=== PATIENT | female | born 1960 | race Caucasian/White ===

== ENCOUNTER → 2017-02-15 | Outpatient (CLI) | payer MEDICAID ==
[~2017-02-15] MED LIST: ASPI-983 PO; ASPI-999 PO; ATOR10TA66 PO; CLOP75TA69 PO; FAMO20TA3 PO; HYDR25TA4 PO; MELO15TA39 PO; METO-333 PO; TRAZ100T92 PO
[2017-02-15 15:27] LABS: BASOPHILS % (AUTO) 0 % (0-10); EOSINOPHILS # (AUTO) 0.1 10^3/uL (0.0-0.3); EOSINOPHILS % (AUTO) 1 % (0-10); LYMPHOCYTES # (AUTO) 1.8 X 10^3 (1.0-4.0); LYMPHOCYTES % (AUTO) 27 % (12-44); MEAN CORPUSCULAR HEMOGLOBIN 31 PG (25-34); MEAN CORPUSCULAR HGB CONC 34 G/DL (32-36); MEAN CORPUSCULAR VOLUME 92 FL (80-99); MEAN PLATELET VOLUME 9.2 FL (7.4-10.4); MONOCYTES # (AUTO) 0.4 X 10^3 (0.0-1.0); MONOCYTES % (AUTO) 6 % (0-12); NEUTROPHILS # (AUTO) 4.4 X 10^3 (1.8-7.8); NEUTROPHILS % (AUTO) 66 % (42-75); PLATELET COUNT 233 10^3/uL (130-400); RED BLOOD COUNT 4.83 10^6/uL (4.35-5.85); RED CELL DISTRIBUTION WIDTH 13.3 % (10.0-14.5); WHITE BLOOD COUNT 6.6 10^3/uL (4.3-11.0)
--- NOTE | 2017-02-15 15:28 | Diagnostic Imaging Report ---
PROCEDURE: US left lower extremity venous. TECHNIQUE: Multiple real-time grayscale images were obtained over the left lower extremity in various projections. Additional duplex Doppler and color Doppler images were also obtained. INDICATION: Left leg swelling. FINDINGS: The veins in the left leg are compressible and have normal spontaneous and augmented flow. IMPRESSION: Negative venous Doppler of left leg. Dictated by: Dictated on workstation # [id number]
--- NOTE | 2017-02-15 15:29 | Diagnostic Imaging Report ---
INDICATION: Left lateral calf swelling. TECHNIQUE: Multiple real time rice scale sonographic images were obtained of the soft tissues of left leg. CORRELATION STUDY: None. FINDINGS: Ultrasound imaging of soft tissue of the left leg demonstrates no definitive mass lesion. No cystic fluid collection. IMPRESSION: Unremarkable focused soft tissue ultrasound of the left calf. Dictated by: Dictated on workstation # [id number]
--- NOTE | 2017-02-15 15:40 | Diagnostic Imaging Report ---
INDICATION: Left leg pain and swelling. FINDINGS: AP and lateral views of the left tibia and fibula show no fracture, dislocation, or other acute abnormalities. IMPRESSION: Negative left tibia and fibula. Dictated by: Dictated on workstation # [id number]
[2017-02-15 15:41] LABS: INR 0.9 (0.8-1.4); PROTHROMBIN TIME PATIENT 12.2 SEC (12.2-14.7)
[2017-02-15 15:47] LABS: ALANINE AMINOTRANSFERASE 26 U/L (0-55); ALBUMIN 4.1 G/DL (3.2-4.5); ANION GAP 11 MMOL/L (5-14); ASPARTATE AMINO TRANSFERASE 24 U/L (5-34); BILIRUBIN,TOTAL 0.5 MG/DL (0.1-1.0); BLOOD UREA NITROGEN 8 MG/DL (7-18); BUN/CREATININE RATIO 11; CALCIUM 8.9 MG/DL (8.5-10.1); CARBON DIOXIDE 22 MMOL/L (21-32); CHLORIDE 108 MMOL/L (98-107); CREATININE SERUM 0.74 MG/DL (0.60-1.30); GFR ESTIMATED > 60; GLUCOSE 166 MG/DL (70-105); POTASSIUM 3.8 MMOL/L (3.6-5.0); SODIUM 141 MMOL/L (135-145); TOTAL PROTEIN 6.6 G/DL (6.4-8.2)
[2017-02-15 15:49] LABS: ERYTHROCYTE SEDIMENTATION RATE 4 MM/HR (0-30)
== END ==
LOC: RAD 14:51
PROVIDERS: ATTEND Internal Medicine Cardiovascular Disease
DX: I70.213 Atherosclerosis of native arteries of extremities with intermittent claudication, bilateral legs (principal); M79.89 Other specified soft tissue disorders; I10 Essential (primary) hypertension; I65.23 Occlusion and stenosis of bilateral carotid arteries; Z72.0 Tobacco use
CPT/HCPCS: 36415; 73590; 76881; 80053; 85025; 85610; 85652; 85730

== ENCOUNTER → 2017-03-27 | Outpatient (CLI) | payer MEDICAID | LOC: RAD 12:29 | PROVIDERS: ATTEND Internal Medicine Cardiovascular Disease | DX: I70.213 Atherosclerosis of native arteries of extremities with intermittent claudication, bilateral legs (principal); I10 Essential (primary) hypertension; I65.23 Occlusion and stenosis of bilateral carotid arteries; M79.89 Other specified soft tissue disorders; Z72.0 Tobacco use | CPT/HCPCS: 93923 ==

== ENCOUNTER 2019-04-08 08:39 | Day surgery (SDC) | payer MEDICAID, MEDICARE ==
[~2019-04-08] VITALS: Ht 165.1 cm; Wt 98.4 kg
[2019-04-08] VITALS (9 sets, daily range): BP systolic 120–159; BP diastolic 63–109
[~2019-04-08 08:39] MED LIST changes: +HEParin (CATH LAB) 2,000 ML IV ONE; +LIDOCAINE 1% INJ 20 ML 20 ML VIAL ONE; +NS IV 1000 ML 1,000 ML ONE; +TRAZ-190 PO; -TRAZ100T92 PO
--- OUTSIDE RECORDS SUMMARY | 2019-04-08 08:42 | XMS REPORT ---
Author Author [facility] Organization [facility] Address [address], [place] [address] Phone [phone] Summary purpose TRANSITION OF CARE AUTO GENERATION Chief Complaint and Reason for Visit No authorized Reason for Visit (Admitting Diagnosis) is available for this visit . Problem list No authorized problems tracked for continuity of care are available for this vis it. Encounters No authorized problems tracked for encounter diagnoses are available for this vi sit. Medications No medications recorded for this patient visit Allergies, adverse reactions, alerts Allergen Category Ingredient Status Reaction Severity Onset unknown cholesterol medicine Drug Allergy unknown cholesterol medicine Confirmed or Verified Immunizations No immunizations recorded for this patient visit Relevant diagnostic tests and/or laboratory data RESULTS Radiology Results [id number] DUP [place] EXT BILAT PACs Image DATE OF EXAM: Apr 17 2016 [id number] VENOUS DUPLEX-BILATERAL : RADIOLOGY REPORT DATE OF SERVICE: 04/17/16 HISTORY: Bilateral calf and thigh pain, peripheral vascular disease BILATERAL LOWER EXTREMITY VENOUS DOPPLER 1400 HOURS Arterial evaluation was normal. The lower extremity veins were evaluated with high resolution real time imaging, pulsed and color flow Doppler. There is normal spontaneous phasic flow in the common femoral, femoral, popliteal, posterior tibial, and greater saphenous veins. All deep vein segments are fully compressible. No thrombi are evident. There is normal augmentation of flow with distal compression. IMPRESSION: Normal bilateral venous Doppler. MD JANINE Drummond/me04/17/2016 14:10:00 / 04/17/2016 14:24:00 cc:Dr. Enrique Mcneil This document has been electronically Signed by: On: DATE OF EXAM: Apr 17 2016 [id number] VENOUS DUPLEX-BILATERAL : RADIOLOGY REPORT DATE OF SERVICE: 04/17/16 HISTORY: Bilateral calf and thigh pain, peripheral vascular disease BILATERAL LOWER EXTREMITY VENOUS DOPPLER 1400 HOURS Arterial evaluation was normal. The lower extremity veins were evaluated with high resolution real time imaging, pulsed and color flow Doppler. There is normal spontaneous phasic flow in the common femoral, femoral, popliteal, posterior tibial, and greater saphenous veins. All deep vein segments are fully compressible. No thrombi are evident. There is normal augmentation of flow with distal compression. IMPRESSION: Normal bilateral venous Doppler. Deepak Vang MD MWD/nh04/17/2016 14:10:00 / 04/17/2016 14:24:00 cc:Dr. Enrique Mcneil This document has been electronically Signed by: DEEPAK VANG MD On: Apr 17 20163:19P Result Amended on 2016-04-17 at 15:20:00. Previous status was [place]. History of procedures No procedures recorded for this patient visit. Functional status No functional or cognitive status observations are available for this visit. Vital signs No authorized vital signs are available for this visit. Social history No Social History or smoking status observations were recorded for this visit. ( Unknown if ever smoked.) Treatment Plan No treatment plan text is available for this visit. Hospital discharge instructions No discharge instruction text is available for this visit.
--- OUTSIDE RECORDS SUMMARY | 2019-04-08 08:42 | XMS REPORT ---
Author Author [facility] Organization [facility] Address [address], [place] [address] Phone [phone] Summary purpose TRANSITION OF CARE AUTO GENERATION [...] tests and/or laboratory data RESULTS Radiology Results [id number] TOE XRAYS - 3 VIEW PACs Image DATE OF EXAM: 2015 RAD 1571-TOE XRAYS-3 VIEW- RIGHT: RADIOLOGY REPORT DATE OF SERVICE: 04/26/16 HISTORY: Fourth toe pain, swelling, injury 04/22/16 RIGHT TOE X-RAY 3 VIEWS 1110 HOURS There is an oblique fracture of the mid through distal diaphysis of the proximal fourth phalanx. No displacement is seen. The remainder of the bony and articular structures visualized are intact. Soft tissue swelling is mild. IMPRESSION: Fracture proximal phalanx fourth toe. DO JENNIFFER Villagran/aleksey 04/26/2016 11:43:00 / 04/26/2016 12:56:54 cc:Dr. Enrique Mcneil This document has been electronically Signed by: On: DATE OF EXAM: 2015 RAD 1571-TOE XRAYS-3 VIEW- RIGHT: RADIOLOGY REPORT DATE OF SERVICE: 04/26/16 HISTORY: Fourth toe pain, swelling, injury 04/22/16 RIGHT TOE X-RAY 3 VIEWS 1110 HOURS There is an oblique fracture of the mid through distal diaphysis of the proximal fourth phalanx. No displacement is seen. The remainder of the bony and articular structures visualized are intact. Soft tissue swelling is mild. IMPRESSION: Fracture proximal phalanx fourth toe. Miguel Garcia DO WP/nh 04/26/2016 11:43:00 / 04/26/2016 12:56:54 cc:Dr. Enrique Mcneil This document has been electronically Signed by: MIGUEL GARCIA DO On: 20152:34P Result Amended on 2016-04-26 at 14:34:46. Previous status was [place]. History of procedures No procedures recorded for [...]
--- OUTSIDE RECORDS SUMMARY | 2019-04-08 08:42 | XMS REPORT ---
Author Author [facility] Organization [facility] Address [address], [place] [address] Phone [phone] Summary purpose TRANSITION OF CARE AUTO GENERATION [...] tests and/or laboratory data RESULTS Radiology Results [id number]:00 DUP ART DOPPLER EXT PACs Image DATE OF EXAM: 2015 [id number] ART DUPLEX LOW EXT BILAT : RADIOLOGY REPORT DATE OF SERVICE: 04/21/16 HISTORY: Peripheral vascular disease, atherosclerosis, abnormal ankle brachial indices, lower extremity claudication. BILATERAL LOWER EXTREMITY ARTERIAL DOPPLER 0900 HOURS The right common femoral artery shows minimal plaque. It has a monophasic waveform with mild spectral broadening. The right superficial femoral artery also shows monophasic appearance throughout its length without additional focal stenoses. The right popliteal artery is monophasic with reduced flow speed. The right posterior tibial artery and anterior tibial artery are also monophasic. The dorsalis pedis artery is patent with monophasic flow. The left common femoral artery shows mild plaquing. It has triphasic flow and minimal spectral broadening with normal flow speed. There is mild plaquing in the mid left superficial femoral artery with triphasic waveform maintained. The left popliteal artery is triphasic with some spectral broadening. The left posterior tibial artery is triphasic with mild spectral broadening. The left anterior tibial artery is biphasic with spectral broadening and the left dorsalis pedis artery is also biphasic. IMPRESSION: 1. Evidence of proximal arterial obstruction in the right lower extremity probably at the level of the right iliac artery. This artery itself is not visualized however abnormal flow is present throughout the right lower extremity. At least two-vessel runoff distally. 2. Scattered areas of mild plaquing throughout the left lower extremity without significant left lower extremity arterial obstruction. MD JANINE Drummond/aleksey04/21/2016 11:35:00 / 04/21/2016 11:46:42 cc:Dr. Enrique Mcneil This document has been electronically Signed by: On: DATE OF EXAM: 2015 [id number] ART DUPLEX LOW EXT BILAT : RADIOLOGY REPORT DATE OF SERVICE: 04/21/16 HISTORY: Peripheral vascular disease, atherosclerosis, abnormal ankle brachial indices, lower extremity claudication. BILATERAL LOWER EXTREMITY ARTERIAL DOPPLER 0900 HOURS The right common femoral artery shows minimal plaque. It has a monophasic waveform with mild spectral broadening. The right superficial femoral artery also shows monophasic appearance throughout its length without additional focal stenoses. The right popliteal artery is monophasic with reduced flow speed. The right posterior tibial artery and anterior tibial artery are also monophasic. The dorsalis pedis artery is patent with monophasic flow. The left common femoral artery shows mild plaquing. It has triphasic flow and minimal spectral broadening with normal flow speed. There is mild plaquing in the mid left superficial femoral artery with triphasic waveform maintained. The left popliteal artery is triphasic with some spectral broadening. The left posterior tibial artery is triphasic with mild spectral broadening. The left anterior tibial artery is biphasic with spectral broadening and the left dorsalis pedis artery is also biphasic. IMPRESSION: 1. Evidence of proximal arterial obstruction in the right lower extremity probably at the level of the right iliac artery. This artery itself is not visualized however abnormal flow is present throughout the right lower extremity. At least two-vessel runoff distally. 2. Scattered areas of mild plaquing throughout the left lower extremity without significant left lower extremity arterial obstruction. MD JANINE Drummond/aleksey04/21/2016 11:35:00 / 04/21/2016 11:46:42 cc:Dr. Enrique Mcneil This document has been electronically Signed by: PURA MUNSON MD On: 20152:40P Result Amended on 2016-04-21 at 14:40:24. Previous status was [place]. History of procedures No procedures recorded for [...]
--- OUTSIDE RECORDS SUMMARY | 2019-04-08 08:42 | XMS REPORT ---
Author [facility] Medical Staff Organization [facility] Address [address], [place] [address] Phone [phone] Summary purpose TRANSITION OF CARE AUTO GENERATION [...] visit Relevant diagnostic tests and/or laboratory data No authorized results are available for this patient visit History of procedures No procedures recorded for [...]
--- OUTSIDE RECORDS SUMMARY | 2019-04-08 08:42 | XMS REPORT ---
Author Author [facility] [employer] [facility] Medical Staff Organization [facility] Address [address], [place] [address] Phone [phone] Summary purpose TRANSITION OF CARE AUTO GENERATION [...]
--- OUTSIDE RECORDS SUMMARY | 2019-04-08 08:42 | XMS REPORT ---
Author Author [facility] Medical Staff Organization [facility] Address [address], [place] [address] Phone [phone] Summary purpose TRANSITION OF CARE AUTO GENERATION [...] tests and/or laboratory data RESULTS Radiology Results [id number]:34:00 TOE XRAYS - 3 VIEW PACs Image [...] IMPRESSION: Fracture proximal phalanx fourth toe. DO JNENIFFER Villagran/aleksey 04/26/2016 11:43:00 / 04/26/2016 12:56:54 cc:Dr. [...] on 2016-04-26 at 14:34:46. Previous status was [place]. History of procedures No procedures recorded for [...]
--- OUTSIDE RECORDS SUMMARY | 2019-04-08 08:43 | XMS REPORT | Continuity of Care Document ---
Demographics x Preferred Language Unknown Marital Status Unknown Mu-Ism Affiliation Unknown Race Unknown Ethnic Group Unknown Author Organization Unknown Address Unknown Allergies Active Description Code Type Severity Reaction Onset Reported/Identified Relationship to Patient Clinical Status Yes unknown cholesterol medicine UNKNOWN CHOLESTEROL MEDICINE Drug Allergy N/A N/A Confirmed or Verified Yes Numorphan Drug Allergy N/A N/A 08/21/2014 Medications There is no data. Problems Date Dx Coded Attending Type Code Diagnosis Diagnosed By 08/13/2012 305.1 NICOTINE DEPENDENCE 08/13/2012 401.1 ESSENTIAL HYPERTENSION BENIGN 08/13/2012 780.52 insomnia 08/13/2012 788.41 urinary frequency increased 08/13/2012 VALADEZ DO, ROBINSON K 305.1 NICOTINE DEPENDENCE 08/13/2012 VALADEZ DO, ROBINSON K 401.1 ESSENTIAL HYPERTENSION BENIGN 08/13/2012 VALADEZ DO, ROBINSON K 780.52 insomnia 08/13/2012 VALADEZ DO, ROBINSON K 788.41 urinary frequency increased 08/13/2012 MUOGHALU DDS, LORE N 305.1 NICOTINE DEPENDENCE 08/13/2012 MUOGHALU DDS, LORE N 401.1 ESSENTIAL HYPERTENSION BENIGN 08/13/2012 MUOGHALU DDS, LORE N 780.52 insomnia 08/13/2012 MUOGHALU DDS, LORE N 788.41 urinary frequency increased 08/13/2012 BIANCA ECHEVERRIA MD 305.1 NICOTINE DEPENDENCE 08/13/2012 BIANCA ECHEVERRIA MD 401.1 ESSENTIAL HYPERTENSION BENIGN 08/13/2012 BIANCA ECHEVERRIA MD 780.52 insomnia 08/13/2012 BIANCA ECHEVERRIA MD 788.41 urinary frequency increased 08/13/2012 BIANCA ECHEVERRIA MD 305.1 NICOTINE DEPENDENCE 08/13/2012 BIANCA ECHEVERRIA MD 401.1 ESSENTIAL HYPERTENSION BENIGN 08/13/2012 BIANCA ECHEVERRIA MD 780.52 insomnia 08/13/2012 BIANCA ECHEVERRIA MD 788.41 urinary frequency increased 08/13/2012 ISABEL ACOSTA MD 305.1 NICOTINE DEPENDENCE 08/13/2012 DAVE MD, ISABEL M 401.1 ESSENTIAL HYPERTENSION BENIGN 08/13/2012 ISABEL ACOSTA MD 780.52 insomnia 08/13/2012 ISABEL ACOSTA MD 788.41 urinary frequency increased 08/13/2012 EMILY ESTEVEZ LILLY S 305.1 NICOTINE DEPENDENCE 08/13/2012 EMILY ESTEVEZ LILLY S 401.1 ESSENTIAL HYPERTENSION BENIGN 08/13/2012 EMILY ESTEVEZ LILLY S 780.52 insomnia 08/13/2012 EMILY ESTEVEZ, LILLY S 788.41 urinary frequency increased 08/13/2012 FRANCE ICE CREAM MAN, KINZA R 305.1 NICOTINE DEPENDENCE 08/13/2012 FRANCE ICE CREAM MAN, KINZA R 401.1 ESSENTIAL HYPERTENSION BENIGN 08/13/2012 FRANCE ICE CREAM MAN, KINZA R 780.52 insomnia 08/13/2012 FRANCE ICE CREAM MAN, KINZA R 788.41 urinary frequency increased 08/13/2012 FRANCE ICE CREAM MAN, KINZA R 305.1 NICOTINE DEPENDENCE 08/13/2012 FRANCE ESTEVEZ, KINZA R 401.1 ESSENTIAL HYPERTENSION BENIGN 08/13/2012 FRANCE ESTEVEZ, KINZA R 780.52 insomnia 08/13/2012 FRANCE ICE CREAM MAN, KINZA R 788.41 urinary frequency increased 08/13/2012 FRANCE ICE CREAM MAN, KINZA R 305.1 NICOTINE DEPENDENCE 08/13/2012 FRANCE ESTEVEZ, KINZA R 401.1 ESSENTIAL HYPERTENSION BENIGN 08/13/2012 FRANCE ICE CREAM MAN, KINZA R 780.52 insomnia 08/13/2012 FRANCE ICE CREAM MAN, KINZA R 788.41 urinary frequency increased 08/13/2012 VIRGINIA LEW MD 305.1 NICOTINE DEPENDENCE 08/13/2012 VIRGINIA LEW MD 401.1 ESSENTIAL HYPERTENSION BENIGN 08/13/2012 VIRGINIA LEW MD 780.52 insomnia 08/13/2012 VIRGINIA LEW MD 788.41 urinary frequency increased 08/13/2012 VIRGINIA LEW MD 305.1 NICOTINE DEPENDENCE 08/13/2012 VIRGINIA LEW MD 401.1 ESSENTIAL HYPERTENSION BENIGN 08/13/2012 VIRGINIA LEW MD 780.52 insomnia 08/13/2012 VIRGINIA LEW MD 788.41 urinary frequency increased 11/14/2012 VALADEZ DOSERGEA K 216.9 PIGMENTED NEVUS 11/14/2012 VALADEZ DO, ROBINSON K 300.00 anxiety 11/14/2012 VALADEZ DO, ROBINSON K 719.43 joint pain, localized in the right wrist 11/14/2012 VALADEZ DO, ROBINSON K 727.49 BURSAL CYST WRIST 11/14/2012 MUOGHALU DDS, LORE N 216.9 PIGMENTED NEVUS 11/14/2012 MUOGHALU DDS, LORE N 300.00 anxiety 11/14/2012 MUOGHALU DDS, LROE N 719.43 joint pain, localized in the right wrist 11/14/2012 MUOGHALU DDS, LORE N 727.49 BURSAL CYST WRIST 11/14/2012 JACKI VICK, BIANCA Horvath 216.9 PIGMENTED NEVUS 11/14/2012 BIANCA ECHEVERRIA MD 300.00 anxiety 11/14/2012 BIANCA ECHEVERRIA MD 719.43 joint pain, localized in the right wrist 11/14/2012 BIANCA ECHEVERRIA MD 727.49 BURSAL CYST WRIST 11/14/2012 BIANCA ECHEVERRIA MD 216.9 PIGMENTED NEVUS 11/14/2012 BIANCA ECHEVERRIA MD 300.00 anxiety 11/14/2012 BIANCA ECHEVERRIA MD 719.43 joint pain, localized in the right wrist 11/14/2012 BIANCA ECHEVERRIA MD 727.49 BURSAL CYST WRIST 11/14/2012 ISABEL ACOSTA MD 216.9 PIGMENTED NEVUS 11/14/2012 ISABEL ACOSTA MD 300.00 anxiety 11/14/2012 ISABEL ACOSTA MD 719.43 joint pain, localized in the right wrist 11/14/2012 ISABEL ACOSTA MD 727.49 BURSAL CYST WRIST 11/14/2012 MAIN DIAZ APRNNDA S 216.9 PIGMENTED NEVUS 11/14/2012 EMILY ESTEVEZ, LILLY S 300.00 anxiety 11/14/2012 MAIN DIAZ APRNNDA S 719.43 joint pain, localized in the right wrist 11/14/2012 MAIN DIAZ APRNNDA S 727.49 BURSAL CYST WRIST 11/14/2012 FRANCE ESTEVEZ KINZA R 216.9 PIGMENTED NEVUS 11/14/2012 FRANCE ESTEVEZ KINZA R 300.00 anxiety 11/14/2012 FRANCE ICE CREAM MAN, KINZA R 719.43 joint pain, localized in the right wrist 11/14/2012 FRANCE ICE CREAM MAN, KINZA R 727.49 BURSAL CYST WRIST 11/14/2012 FRANCE ICE CREAM MAN, KINZA R 216.9 PIGMENTED NEVUS 11/14/2012 FRANCE ICE CREAM MAN, KINZA R 300.00 anxiety 11/14/2012 FRANCE ICE CREAM MAN, KINZA R 719.43 joint pain, localized in the right wrist 11/14/2012 FRANCE ICE CREAM MAN, KINZA R 727.49 BURSAL CYST WRIST 11/14/2012 FRANCE ICE CREAM MAN, KINZA R 216.9 PIGMENTED NEVUS 11/14/2012 FRANCE ICE CREAM MAN, KINZA R 300.00 anxiety 11/14/2012 FRANCE ICE CREAM MAN, KINZA R 719.43 joint pain, localized in the right wrist 11/14/2012 FRANCE ICE CREAM MAN, KINZA R 727.49 BURSAL CYST WRIST 11/14/2012 VIRGINIA LEW MD 216.9 PIGMENTED NEVUS 11/14/2012 VIRGINIA LEW MD 300.00 anxiety 11/14/2012 VIRGINIA LEW MD 719.43 joint pain, localized in the right wrist 11/14/2012 VIRGINIA LEW MD 727.49 BURSAL CYST WRIST 11/14/2012 VIRGINIA LEW MD 216.9 PIGMENTED NEVUS 11/14/2012 VIRGINIA LEW MD 300.00 anxiety 11/14/2012 VIRGINIA LEW MD 719.43 joint pain, localized in the right wrist 11/14/2012 VIRGINIA LEW MD 727.49 BURSAL CYST WRIST 08/06/2013 BIANCA ECHEVERRIA MD 272.4 HYPERLIPIDEMIA 08/06/2013 BIANCA ECHEVERRIA MD 790.29 PREDIABETES 08/06/2013 BIANCA ECHEVERRIA MD 272.4 HYPERLIPIDEMIA 08/06/2013 BIANCA ECHEVERRIA MD 790.29 PREDIABETES 08/06/2013 ISABEL ACOSTA MD 272.4 HYPERLIPIDEMIA 08/06/2013 ISABEL ACOSTA MD 790.29 PREDIABETES 08/06/2013 LILLY DIAZ APRN S 272.4 HYPERLIPIDEMIA 08/06/2013 LILLY DIAZ APRN S 790.29 PREDIABETES 08/06/2013 FORD HOUGH APRNINA R 272.4 HYPERLIPIDEMIA 08/06/2013 FRANCE ESTEVEZ, KINZA R 790.29 PREDIABETES 08/06/2013 FRANCE ESTEVEZ, KINZA R 272.4 HYPERLIPIDEMIA 08/06/2013 FRANCE ESTEVEZ, KINZA R 790.29 PREDIABETES 08/06/2013 FRANCE ESTEVEZ, KINZA R 272.4 HYPERLIPIDEMIA 08/06/2013 FORD HOUGH APRNINA R 790.29 PREDIABETES 08/06/2013 VIRGINIA LEW MD 272.4 HYPERLIPIDEMIA 08/06/2013 VIRGINIA LEW MD 790.29 PREDIABETES 08/06/2013 VIRGINIA LEW MD 272.4 HYPERLIPIDEMIA 08/06/2013 VIRGINIA LEW MD 790.29 PREDIABETES 01/24/2014 LILLY DIAZ APRN 781.0 ABNORMAL INVOLUNTARY MOVEMENTS 01/24/2014 FORD HOUGH APRNINA R 781.0 ABNORMAL INVOLUNTARY MOVEMENTS 01/24/2014 FORD HOUGH APRNINA R 781.0 ABNORMAL INVOLUNTARY MOVEMENTS 01/24/2014 FORD HOUGH APRNINA R 781.0 ABNORMAL INVOLUNTARY MOVEMENTS 01/24/2014 VIRGINIA LEW MD 781.0 ABNORMAL INVOLUNTARY MOVEMENTS 01/24/2014 VIRGINIA LEW MD 781.0 ABNORMAL INVOLUNTARY MOVEMENTS 03/18/2014 FORD HOUGH APRNINA R 842.10 SPRAIN OF UNSPECIFIED SITE OF HAND 03/18/2014 OFRD HOUGH APRNINA R 842.10 SPRAIN OF UNSPECIFIED SITE OF HAND 03/18/2014 KINZA HOUGH APRN R 842.10 SPRAIN OF UNSPECIFIED SITE OF HAND 03/18/2014 VIRGINIA LEW MD 842.10 SPRAIN OF UNSPECIFIED SITE OF HAND 03/18/2014 VIRGINIA LEW MD 842.10 SPRAIN OF UNSPECIFIED SITE OF HAND 10/07/2014 KINZA HOGUH APRN R 599.0 URINARY TRACT INFECTION SITE NOT SPECIFIED 10/07/2014 KINZA HOUGH APRN R 780.60 FEVER, UNSPECIFIED 10/07/2014 KINZA HOUGH APRN R 780.79 OTHER MALAISE AND FATIGUE 10/07/2014 VIRGINIA LEW MD 599.0 URINARY TRACT INFECTION SITE NOT SPECIFIED 10/07/2014 VIRGINIA LEW MD 780.60 FEVER, UNSPECIFIED 10/07/2014 VIRGINIA LEW MD 780.79 OTHER MALAISE AND FATIGUE 10/07/2014 VIRGINIA LEW MD 599.0 URINARY TRACT INFECTION SITE NOT SPECIFIED 10/07/2014 VIRGINIA LEW MD 780.60 FEVER, UNSPECIFIED 10/07/2014 VIRGINIA LEW MD 780.79 OTHER MALAISE AND FATIGUE 01/12/2015 VIRGINIA LEW MD 381.81 DYSFUNCTION OF EUSTACHIAN TUBE 01/12/2015 VIRGINIA LEW MD 381.81 DYSFUNCTION OF EUSTACHIAN TUBE Procedures Code Description [place] [address] EXCISION BENIGN LESION <0.5 cm (specify location in [facility] description) 11/14/2012 67048 ROUTINE VENIPUNCTURE 08/21/2013 02019 A1C (IN-HOUSE) 08/21/2013 69006 UA LONG DIP 08/21/2013 06339 CMP 08/21/2013 80379 LIPID PANEL 08/21/2013 14075 CULTURE URINE 08/21/2013 97013 UA W/ CULTURE IF INDICATED 10/07/2014 02546 INFLUENZA A & B (IN-HOUSE) 10/07/2014 19473 CULTURE URINE 10/09/2014 56935 UA LONG DIP 01/12/2015 01711 CULTURE URINE 01/13/2015 79275 UA LONG DIP 01/22/2015 59116 ROUTINE VENIPUNCTURE 01/19/2016 31814 CHEST X-RAY 01/19/2016 84547 COMPREHEN METABOLIC PANEL 01/19/2016 20083 ASSAY OF CK (CPK) 01/19/2016 84922 CREATINE, MB FRACTION 01/19/2016 83984 NATRIURETIC PEPTIDE 01/19/2016 38478 ASSAY OF TROPONIN, QUANT 01/19/2016 17920 COMPLETE CBC, AUTOMATED 01/19/2016 32487 FIBRIN DEGRADATION, QUANT 01/19/2016 01725 ELECTROCARDIOGRAM, TRACING 01/19/2016 60275 ELECTROCARDIOGRAM REPORT 01/19/2016 53819 EMERGENCY DEPT VISIT 01/19/2016 20912 EXTREMITY STUDY 04/17/2016 Results Test Result Range CBC - 01/19/16 00:00 HCT 45.0 % 36.9-47.0 HGB 15.0 G/DL 12.0-16.0 MCH 31.1 PG 27-31 MCHC 33.3 G/DL 33-37 MCV 93.4 FL 81-99 MPV 9.1 FL 7.3-10.4 PLT 233 10^3u 130-400 RBC 4.8 10^6u 4.2-5.4 RDW 12.8 % 11.5-15.5 WBC 8.2 10^3u 4.8-10.8 PRO-BNP - 01/19/16 00:00 PRO-BNP 27 PG/ML 0-900 CKMB - 01/19/16 00:00 CKMB 1.5 NG/ML 0-3.6 CK - 01/19/16 00:00 CK 128 IU/L 26-192 CMP - 01/19/16 00:00 ALB 4.0 G/DL 3.5-5 ALP 84 IU/L 25-72 ALT 37 IU/L 12-65 AST 19 IU/L 10-42 BCR 19.4 10-20 BUN 12 MG/DL 7-18 CA 8.6 MG/DL 8.4-10.2 CL 102 MEQ/L 98-107 CO2 26.3 MEQ/L 22-28 CREA 0.62 MG/DL 0.6-1.0 EGFR 100 eGFR >=60 GLU 126 MG/DL 70-105 K 3.5 MEQ/L 3.5-5.1 NA 139 MEQ/L 134-145 OSMSC 278.8 MOSML 280-300 TBIL 0.2 MG/DL 0.1-1.0 TP 7.0 G/DL 6.0-8.3 Albumin/Globulin Ratio 1.3 0-8 Anion Gap 10.7 8-16 TROP - 01/19/16 00:00 TROP < 0.02 NG/ML 0.0-0.4 D DIMER - 01/19/16 00:00 DDIM < 100 NG/ML 0-400 Encounters ACCT No. Visit Date/Time Discharge Status Pt. Type Provider Facility Loc./Unit Complaint [id number] 04/26/2016 10:48:00 04/26/2016 10:48:00 DIS Outpatient HANNAH POSADAS [facility] RAD [id number] 04/21/2016 08:50:00 04/21/2016 08:50:00 DIS Outpatient HANNAH POSADAS [facility] RAD [id number] 04/17/2016 13:23:00 04/17/2016 13:23:00 DIS Outpatient HANNAH POSADAS [facility] RAD [id number] 03/21/2016 12:35:00 03/21/2016 12:35:00 DIS Outpatient HANNAH POSADAS [facility] RAD [id number] 03/17/2016 12:30:00 03/17/2016 12:30:00 DIS Outpatient HANNAH POSADAS [facility] RAD [id number] 01/21/2016 07:04:00 01/21/2016 07:04:00 CAN Outpatient HANNAH POSADAS [facility] RAD [id number] 01/19/2016 18:12:00 01/19/2016 20:20:00 DIS Emergency BIANCA WISEMAN [facility] EMR [id number] 09/20/2015 00:00:00 Document Registration [id number] 02/27/2019 16:19:41 02/27/2019 23:59:59 CLS Outpatient Damián Ayers [id number] 12/26/2018 15:31:24 12/26/2018 23:59:59 CLS Outpatient Damián Ayers [id number] 10/03/2018 16:23:57 10/03/2018 23:59:59 CLS Outpatient Damián Ayers [id number] 12/09/2015 17:02:12 12/09/2015 23:59:59 CLS Outpatient Joellen Lanza [id number] 04/25/2017 15:56:02 ACT Unknown [id number] 01/22/2015 09:14:00 01/22/2015 23:59:59 CLS Outpatient VIRGINIA LEW MD [id number] 01/12/2015 09:26:00 01/12/2015 23:59:59 CLS Outpatient VIRGINIA LEW MD [id number] 10/07/2014 14:45:00 10/07/2014 23:59:59 CLS Outpatient KINZA HOUGH APRN [id number] 08/21/2014 10:01:00 08/21/2014 23:59:59 CLS Outpatient KINZA HOUGH APRN [id number] 03/18/2014 10:48:00 03/18/2014 23:59:59 CLS Outpatient KINZA HOUGH APRN [id number] 01/24/2014 09:09:00 01/24/2014 23:59:59 CLS Outpatient LILLY DIAZ APRN [id number] 11/27/2013 10:54:00 11/27/2013 23:59:59 CLS Outpatient ISABEL ACOSTA MD [id number] 08/21/2013 07:54:00 08/21/2013 23:59:59 CLS Outpatient BIANCA ECHEVERRIA MD [id number] 08/06/2013 08:19:00 08/06/2013 23:59:59 CLS Outpatient BIANCA ECHEVERRIA MD [id number] 11/20/2012 00:00:00 11/20/2012 23:59:59 CLS Outpatient LORE OZUNA DDS [id number] 11/14/2012 10:33:00 11/14/2012 23:59:59 [place] [id number] 08/13/2012 09:38:00 08/13/2012 23:59:59 CLS Outpatient
--- OUTSIDE RECORDS SUMMARY | 2019-04-08 08:43 | XMS REPORT ---
Author Author [facility] Medical Staff Organization [facility] Address [address], [place] [address] Phone [phone] Care Team Providers Care Doctor Assistant Name Role Phone KATHARINA VICK, HANNAH PP [phone] Summary purpose TRANSITION OF CARE AUTO GENERATION [...] Relevant diagnostic tests and/or laboratory data RESULTS Chemistry [id number]:40:00 Result Normal Range Units Sodium 139 134-145 mEq/l Potassium 3.5 3.5-5.1 mEq/l Chloride 102 98-107 mEq/l CO2 26.3 22-28 mEq/l Glucose H 126 70-105 mg/dl BUN 12 7-18 mg/dl Creatinine 0.62 0.6-1.0 mg/dl Calcium 8.6 8.4-10.2 mg/dl TP - Total Protein 7.0 6.0-8.3 g/dl Albumin 4.0 3.5-5 g/dl Bilirubin - Total 0.2 0.1-1.0 mg/dl AST 19 10-42 IU/L ALT 37 12-65 IU/L ALP H 84 25-72 IU/L Osmolality L 278.8 280-300 mOsm/L Albumin/Globulin Ratio 1.3 0-8 Anion GAP 10.7 8-16 BUN/Creatinine Ratio 19.4 10-20 BNP- Brain Natriuretic Peptide 27 0-900 pg/ml Estimated GFR 100 >=60 mL/min/1.7 Hematology [id number]:40:00 Result Normal Range Units WBC 8.2 4.8-10.8 103/uL RBC 4.8 4.2-5.4 106/uL HGB 15.0 12.0-16.0 g/dl HCT 45.0 36.9-47.0 % MCV 93.4 81-99 FL MCH H 31.1 27-31 pg MCHC 33.3 33-37 g/dl RDW 12.8 11.5-15.5 % PLT 233 130-400 103/uL MPV 9.1 7.3-10.4 FL Reference Lab (Sendout) [id number]:40:00 Result Normal Range Units D-Dimer < 100 0-400 ng/ml Cardiac [id number]:40:00 Result Normal Range Units CK 128 26-192 IU/L CKMB 1.5 0-3.6 ng/ml Patient samples may contain heterophilic antibodies that could react with immunoassays to give falsely elevated or depressed results. This Dimension assay has been designed to minimize interference from heterophilic antibodies. Nevertheless, complete elimination of this interference from all patient specimens cannot be guaranteed. A test result that is inconsistent with the clinical picture and patient history should be interpreted with caution. Troponin I < 0.02 0.0-0.4 ng/ml Patient samples may contain heterophilic antibodies that could react in immunoassays to give falsely elevated or depressed results. This Dimension assay has been designed to minimize interference from heterophilic antibodies. Nevertheless, complete elimination of this interference from all patient specimens cannot be guaranteed. A test result that is inconsistent with the clinical picture and patient history should be interpreted with caution. Radiology Results [id number]:42:00 Chest XRay - Port - 1 View PACs Image DATE OF EXAM: Jan 19 2016 RAD 0292-CHEST 1 VIEW PORT : RADIOLOGY REPORT DATE OF SERVICE: 01/19/16 HISTORY: Patient has chest heaviness. PORTABLE ONE VIEW CHEST 1850 HOURS Heart and mediastinum are normal. The lungs are clear. No effusion is seen. IMPRESSION: Negative study of the chest. DO ONEL Blanco/aleksey 01/20/2016 07:48:00 / 01/20/2016 08:45:33 cc:Dr. Hannah Mcneil This document has been electronically Signed by: On: DATE OF EXAM: Jan 19 2016 RAD 0292-CHEST 1 VIEW PORT : RADIOLOGY REPORT DATE OF SERVICE: 01/19/16 HISTORY: Patient has chest heaviness. PORTABLE ONE VIEW CHEST 1850 HOURS Heart and mediastinum are normal. The lungs are clear. No effusion is seen. IMPRESSION: Negative study of the chest. Sanjay Maloney DO MW/nh 01/20/2016 07:48:00 / 01/20/2016 08:45:33 cc:Dr. Hannah Mcneil This document has been electronically Signed by: SANJAY MALONEY DO On: Jan 20 20162:42P Result Amended on 2016-01-20 at 14:42:14. Previous status was [place]. [id number]:40:00 Result Normal Range Units MPV 9.1 7.3-10.4 FL History of procedures Procedure Code Code Type Description Date Performed Performing Physician 94647 CPT-4 ROUTINE VENIPUNCTURE 01-19-2016 BIANCAMATT WISEMAN 16844 CPT-4 CHEST X-RAY 01-19-2016 BIANCA WISEMAN 28217 CPT-4 COMPREHEN METABOLIC PANEL 01-19-2016 BIANCAMATT WISEMAN 58418 CPT-4 ASSAY OF CK (CPK) 01-19-2016 BIANCAMATT WISEMAN 26733 CPT-4 CREATINE, MB FRACTION 01-19-2016 BIANCAMATT WISEMAN 24847 CPT-4 NATRIURETIC PEPTIDE 01-19-2016 BIANCA WISEMAN 30865 CPT-4 ASSAY OF TROPONIN, QUANT 01-19-2016 BIANCA WISEMAN 48929 CPT-4 COMPLETE CBC, AUTOMATED 01-19-2016 BIANCA WISEMAN 31497 CPT-4 FIBRIN DEGRADATION, QUANT 01-19-2016 BIANCA WISEMAN 91018 CPT-4 ELECTROCARDIOGRAM, TRACING 01-19-2016 BIANCA WISEMAN 94463 CPT-4 ELECTROCARDIOGRAM REPORT 01-19-2016 BIANCA WISEMAN 02228 CPT-4 EMERGENCY DEPT VISIT 01-19-2016 BIANCA WISEMAN 76623 CPT-4 EMERGENCY DEPT VISIT 01-19-2016 BIANCA WISEMAN Functional status Functional Status Finding Observation Time Abdomen Appearance round 68-16-910618:20 Abdomen soft 10-79-539204:20 Urination normal 23-57-718078:20 Quality sym/unlabored 41-57-680204:20 Cough absent 63-10-329884:20 Secretions no 52-34-598275:20 Airway natural 89-83-014480:20 Oxygen no :20 Temp >100.4 no :20 Temp <96.8 no :20 Chills with rigors no :20 HR > 90bpm yes :20 Respirations > 20 no :20 Systolic <90 no :20 headache stiff neck no 94-63-263508:20 IV Site Location L inner FA :20 IV Type peripheral :20 IV Site Information discontinued :20 IV Site Start Attmpt 2 times :43 IV Site Bon 20 :43 IV Site Appearance WNL 26-47-055556:43 IV Site Color clear :43 IV Site Patent yes :43 Dressing Changed yes :43 Dressing Type occlusive :43 Nursing Note Discharge instructions given, voices understanding. IV site dcd. Stress test set up for Sunday. :20 Vital signs Type Value Date Respiration Rate 18breaths per minute :20 Pulse 80beats per minute :20 Oxygen Saturation 97% :20 BP Systolic 119mmHg :20 BP Diastolic 68mmHg 07-99-604669:20 Temperature 98.0F 92-78-907107:20 Social history Type Value Smoking Status CURRENT EVERY DAY SMOKER Treatment Plan No treatment plan text is available for this visit. Hospital discharge instructions Dismissal Condition good Disposition on DC home DC Inst/Educ Give yes Flu Vac none
--- OUTSIDE RECORDS SUMMARY | 2019-04-08 08:43 | XMS REPORT ---
Author Author [facility] Medical [facility] Organization [facility] Address [address], [place] [address] Phone [phone] Summary purpose TRANSITION OF CARE AUTO GENERATION [...] tests and/or laboratory data RESULTS Radiology Results [id number]:40:00 DUP ART DOPPLER EXT PACs Image DATE OF EXAM: 2015 [id number] ART DUPLEX LOW EXT BILAT : RADIOLOGY [...] left lower extremity arterial obstruction. MD JANINE Drummond/nv04/21/2016 11:35:00 / 04/21/2016 11:46:42 cc:Dr. Enrique Mcneil This document has been electronically Signed by: On: DATE OF EXAM: 2015 [id number] ART DUPLEX LOW EXT BILAT : RADIOLOGY [...] on 2016-04-21 at 14:40:24. Previous status was [place]. History of procedures No procedures recorded for [...]
--- OUTSIDE RECORDS SUMMARY | 2019-04-08 08:43 | XMS REPORT ---
Author Author [facility] Medical Staff Organization [facility] Address [address], [place] [address] Phone [phone] Summary purpose TRANSITION OF CARE AUTO GENERATION [...]
--- OUTSIDE RECORDS SUMMARY | 2019-04-08 08:43 | XMS REPORT ---
Author [facility] Organization [facility] Address [address], [place] [address] Phone [phone] Summary purpose TRANSITION OF CARE AUTO GENERATION [...] tests and/or laboratory data RESULTS Radiology Results [id number]:19:00 DUP [place] EXT BILAT PACs Image DATE OF EXAM: Apr 17 2016 [id number] VENOUS DUPLEX-BILATERAL : RADIOLOGY REPORT DATE OF [...] IMPRESSION: Normal bilateral venous Doppler. MD JANINE Drummond/mi04/17/2016 14:10:00 / 04/17/2016 14:24:00 cc:Dr. Enrique Posadas This document has been electronically Signed by: On: DATE OF EXAM: Apr 17 2016 [id number] VENOUS DUPLEX-BILATERAL : RADIOLOGY REPORT DATE OF [...] Normal bilateral venous Doppler. Deepak Vang MD MWAlexandru/nh04/17/2016 14:10:00 / 04/17/2016 14:24:00 cc:Dr. Enrique Posadas This document has been electronically Signed by: DEEPAK VANG MD On: Apr 17 20163:19P Result Amended on 2016-04-17 at 15:20:00. Previous status was [place]. History of procedures Procedure Code Code Type Description Date Performed Performing Physician 67639 CPT-4 EXTREMITY STUDY 04-17-2016 ENRIQUE POSADAS Functional status No functional or cognitive status [...]
[2019-04-08] MEDS ORDERED: NS IV 1000 ML 1,000 ML IV SCH ×2 (08:47→12:21)
[2019-04-08 09:12] LABS: HEMOGLOBIN 14.7 G/DL (11.5-16.0); MEAN PLATELET VOLUME 8.6 FL (7.4-10.4); WHITE BLOOD COUNT 7.3 10^3/uL (4.3-11.0)
[2019-04-08 09:32] LABS: INR 0.9 (0.8-1.4); PROTHROMBIN TIME PATIENT 12.7 SEC (12.2-14.7)
[2019-04-08] MEDS ORDERED: RT-ALBUINH INH (09:50)
[2019-04-08] MEDS ORDERED: GABA-486 PO (09:50)
[2019-04-08] MEDS ORDERED: IPRA0.2S51 IH (09:50)
[2019-04-08] MEDS ORDERED: ZOLP10TA5 PO (09:50)
[2019-04-08] MEDS ORDERED: FLUT16SP22 NS (09:50)
[2019-04-08] MEDS ORDERED: TRAM50TA2 PO (09:50)
[2019-04-08] MEDS ORDERED: PANT40TA3 PO (09:50)
[2019-04-08] MEDS ORDERED: AMIT10TA6 PO (09:50)
[2019-04-08] MEDS ORDERED: ALBU0.63 IH (09:50)
[2019-04-08] MEDS ORDERED: DICL1ADH18 TD (09:50)
[2019-04-08 09:53] LABS: CARBON DIOXIDE 24 MMOL/L (21-32); CHLORIDE 106 MMOL/L (98-107); SODIUM 140 MMOL/L (135-145)
[2019-04-08 09:54] LABS: ALANINE AMINOTRANSFERASE 29 U/L (0-55); ALBUMIN 4.4 GM/DL (3.2-4.5); ALKALINE PHOSPHATASE 92 U/L (40-136); BILIRUBIN,TOTAL 0.5 MG/DL (0.1-1.0); BUN/CREATININE RATIO 16; CALCIUM 9.3 MG/DL (8.5-10.1); CHOLESTEROL 135 MG/DL (< 200); CREATININE SERUM 0.67 MG/DL (0.60-1.30); GFR ESTIMATED > 60; GLUCOSE 117 MG/DL (70-105); HDL CHOLESTEROL 27 MG/DL (40-60); TOTAL PROTEIN 7.2 GM/DL (6.4-8.2); TRIGLYCERIDES 108 MG/DL (<150); VLDL CHOLESTEROL 22 MG/DL (5-40)
[2019-04-08] MEDS ORDERED: fentaNYL INJECTION 100 MCG/2 ML AMP ONE ×2 (10:09→11:18)
[2019-04-08] MEDS ORDERED: MIDAZOLAM 5 MG/5 ML (VERSED) VIAL ONE ×2 (10:09→11:01)
--- NOTE | 2019-04-08 10:48 | Cardiac Procedure Note-CS/ASA ---
Pre-Procedure Note Pre-Op Procedure Note H&P Reviewed The H&P was reviewed, patient examined and no changes noted. Date H&P Reviewed: Apr 08, 2019 Time H&P Reviewed: 10:48 Conscious Sedation Pre-Proced Time 10:48 ASA Score 3 For ASA 3 and 4: Consider anesthesia and medical clearance. Also, for patients with a history of failed moderate sedation consider anesthesia. Airway Lungs Heart ASA score ASA 1: a normal healthy patient ASA 2: a patient with a mild systemic disease (mid diabetes, controlled hypertension, obesity ASA 3: a patient with a severe systemic disease that limits activity (angina, COPD, prior Myocardial infarction) ASA 4: a patient with an incapacitating disease that is a constant threat to life (CHF, renal failure) ASA 5: a moribund patient not expected to survive 24 hrs. (ruptured aneurysm) ASA 6: a declared brain- patient whose organs are being harvested. For emergent operations, add the letter E after the classification Mallampati Classification Grade 3 Sedation Plan Analgesia, Amnesia, Plan communicated to team members, Discussed options with patient/fam, Discussed risks with patient/fam The patient is an appropriate candidate to undergo the planned procedure, sedation, and anesthesia. The patient immediately re-assessed prior to indication. GLORIA FRANCOIS MD FACP FAC CCDS Apr 08, 2019 10:48
[2019-04-08] MEDS ORDERED: LIDOCAINE 1% INJ 20 ML 20 ML VIAL ONE (11:09)
[2019-04-08] MEDS ORDERED: HEParin 1000 UNIT/ML (10ML VIAL) FOR BOLUS ONE (11:10)
[2019-04-08] MEDS ORDERED: IPRATROPIUM BROMIDE IH SCH (12:30)
[2019-04-08] MEDS ORDERED: PATIENT MAY USE OWN MEDS, ALL PO SCH (12:30)
[2019-04-08] MEDS ORDERED: RT-ALBUTEROL SULF 2.5 MG/3 ML PRE-MIX VIAL INH PRN (12:30)
[2019-04-08] MEDS ORDERED: GABAPENTIN 100 MG (NEURONTIN) CAP PO SCH (13:00)
[2019-04-08] MEDS ORDERED: ALBUTEROL IH PRN (14:15)
--- NOTE | 2019-04-08 14:42 | OPERATIVE REPORT ---
DATE OF SERVICE: 04/08/2019 PERIPHERAL ANGIOGRAPHY AND ANGIOPLASTY REPORT INDICATIONS: The patient is a 59-year-old lady with known peripheral arterial disease, who has had stenting of the ostial and proximal common iliac arteries in 2016. Lately, she has developed symptoms of leg claudication on both sides, somewhat more prominent on the left side. A noninvasive workup indicated moderately severe disease on the right side. Given her symptoms and history, peripheral angiography was carried out today. Informed consent was obtained for peripheral angiography and possible ad hoc intervention. DESCRIPTION OF PROCEDURE: She was brought to the cardiac catheterization laboratory in a fasting state. Right groin was prepared and draped in the usual sterile fashion. Lidocaine 1% was used for local anesthesia. Modified Seldinger technique was used to advance a 5-Burkinan sheath into the right femoral artery. A 5-Burkinan pigtail catheter was used to carry out abdominal aortic angiography with the pigtail placed above the renal arteries, at the level of L1. The pigtail was then pulled back to the lower abdominal aorta, above the aortoiliac bifurcation and bilateral leg artery angiography was performed with runoff down to the level of the ankles. PERCUTANEOUS INTERVENTION TO THE ILIAC ARTERIES: Diagnostic angiography indicated 80-90% in-stent restenosis of the right common iliac artery where the patient is known to have an 8.0 x 35 mm stent. There is a kissing stent in the left iliac artery, which exhibited only mild stenosis. We exchanged the sheath in the right femoral artery over a wire for a 6-Burkinan sheath. We put a 6-Burkinan sheath in the left femoral artery using the Seldinger technique. We advanced balloons over 0.035-inch wires into both iliac arteries, within their stented segments. On the left side, we used a 10 x 20 balloon. On the right side, we used an 8 x 20 balloon. Kissing balloon angioplasty was performed. Subsequent angiography revealed 0% residual stenosis in the right common iliac artery which was exhibiting 80-90% in-stent restenosis. The left common iliac artery does not exhibit any significant stenosis following balloon angioplasty. The patient tolerated the procedure well. ABDOMINAL AORTIC ANGIOGRAPHY: Abdominal aortic angiography indicates a small infrarenal abdominal aortic aneurysm, just above the level of the aortoiliac bifurcation. The renal arteries are identified and do not exhibit significant disease. The mesenteric vessels, to the extent visualized, do not exhibit significant disease. BILATERAL LEG ARTERY ANGIOGRAPHY: Bilateral leg artery angiography indicated 80-90% in-stent restenosis in the right common iliac artery to which the balloon angioplasty was carried out. The left common iliac artery shows mild in-stent restenosis. Kissing balloon angioplasty was performed in the kissing stents within the common iliac arteries and there is no significant residual stenosis. The stent on the right side is known to be 8 x 35 mm. On the left side, the stent is known to be 10 x 35 mm. The internal iliacs are intact on both sides. The external iliacs and common, superficial, and deep femoral arteries exhibit mild disease on both sides. The popliteal arteries are intact on both sides. There is a 3-vessel runoff on both sides. CONCLUSIONS: 1. Peripheral arterial disease primarily consisting of 80-90% in-stent restenosis in the right common iliac artery to which successful balloon angioplasty was carried out (kissing balloon angioplasty) because of a history of kissing stents that were placed in 2016: 8.0 x 35 mm on the right and 10 x 35 mm on the left. The rest of the leg arteries do not exhibit significant obstructive disease. 2. Small infrarenal abdominal aortic aneurysm. 3. Intact renal arteries without significant disease. Job ID: [id number] DocumentID: [id number] Dictated Date: 04/08/2019 12:16:29 Vice President Financial Date: 04/08/2019 14:41:29 Dictated By: GLORIA FRANCOIS MD, MA, FACP, FACC, MTDD
[2019-04-08] MEDS: GABAPENTIN 100 MG (NEURONTIN) CAP PO SCH ×2 (15:21→21:00)
--- NOTE | 2019-04-08 18:30 | NUR ---
This RN spoke with Dr. Adames at this time, patient OK to triage out to 4th floor if needed.
[2019-04-08] MEDS ORDERED: ZOLPIDEM 5 MG (AMBIEN) TAB PO PRN (21:00)
[2019-04-08] MEDS ORDERED: DICLOFENAC EPOLAMINE 1.3% TD SCH (21:00)
[2019-04-08] MEDS ORDERED: AMITRIPTYLINE 10 MG (ELAVIL) TAB PO SCH (21:00)
[2019-04-08] MEDS ORDERED: RT-IPRATROPIUM (ATROVENT) 0.5MG/2.5ML AMP IH SCH (21:00)
[2019-04-08] MEDS ORDERED: meTOprolol TARTRATE 25 MG (LOPRESSOR) TABLET PO SCH (21:00)
[2019-04-08] MEDS ORDERED: ALBUTEROL IH SCH (21:00)
[2019-04-08] MEDS ORDERED: ATORVASTATIN 10 MG (LIPITOR) TABLET PO SCH (21:00)
[2019-04-09] VITALS: BP 131/70
[2019-04-09 03:31] LABS: HEMOGLOBIN 13.1 G/DL (11.5-16.0); MEAN PLATELET VOLUME 9.1 FL (7.4-10.4); RED CELL DISTRIBUTION WIDTH 13.7 % (10.0-14.5); WHITE BLOOD COUNT 9.9 10^3/uL (4.3-11.0)
[2019-04-09 03:50] LABS: BUN/CREATININE RATIO 12; CALCIUM 8.7 MG/DL (8.5-10.1); CARBON DIOXIDE 22 MMOL/L (21-32); CHLORIDE 106 MMOL/L (98-107); CREATININE SERUM 0.66 MG/DL (0.60-1.30); GFR ESTIMATED > 60; GLUCOSE 117 MG/DL (70-105); POTASSIUM 4.1 MMOL/L (3.6-5.0); SODIUM 136 MMOL/L (135-145)
[2019-04-09 04:00] VITALS: BP 122/71
[2019-04-09] MEDS ORDERED: PANTOPRAZOLE 40 MG (PROTONIX) TAB PO SCH (07:00)
--- NOTE | 2019-04-09 07:55 | Progress Note-Cardiology ---
Cardiology SOAP Progress Note Subjective: Sitting up in bed. Wants to go home. No c/o CP, palpitations, syncope or near syncope. No c/o dyspnea. No c/o groin discomfort. Objective: I&O/Vital Signs 04/09/19 04/09/19 04/09/19 04/09/19 01:00 04:00 07:00 08:00 Temp 97.2 Pulse 92 84 82 Resp 16 B/P (MAP) 122/71 (88) Pulse Ox 94 O2 Delivery Room Air Room Air 04/09/19 08:47 Pulse Ox 96 O2 Delivery Room Air 04/09/19 00:00 Intake Total 1780 ml Output Total 550 ml Balance 1230 ml Weight (Pounds): 217 Weight (Ounces): 0.0 Weight (Calculated Kilograms): 98.274786 Side: right Groin site without hematoma: Yes Condition: DP/PT pulses palpable, extremity w/d/p Bruising: mild bruising Constitutional: AAO x 3, well-developed, well-nourished Respiratory: No accessory muscle use, No respiratory distress; lungs clear to auscultation Cardiovascular: regular rate-rhythm; No JVD; S1 and S2 Gastrointestional: audible bowel sounds Extremities: no lower extremity edema bilateral Neurologic/Psychiatric: grossly intact Skin: No rash on exposed areas, No ulcerations on exposed areas Results/Procedures: Labs Laboratory Tests 04/09/19 03:15: White Blood Count 9.9, Red Blood Count 4.43, Hemoglobin 13.1, Hematocrit 40, Mean Corpuscular Volume 90, Mean Corpuscular Hemoglobin 30, Mean Corpuscular Hemoglobin Concent 33, Red Cell Distribution Width 13.7, Platelet Count 206, Mean Platelet Volume 9.1, Sodium Level 136, Potassium Level 4.1, Chloride Level 106, Carbon Dioxide Level 22, Anion Gap 8, Blood Urea Nitrogen 8, Creatinine 0.66, Estimat Glomerular Filtration Rate > 60, BUN/Creatinine Ratio 12, Glucose Level 117H, Calcium Level 8.7 Procedures S/P peripheral angiogram with successful intervention on 04-08-19. Please refer to Dr. Adames's report of the same date for details. A/P: Assessment: PAD. Peripheral angio of 04/08/19: 80-90% in-stent restenosis in the right common iliac artery to which successful balloon angioplasty was carried out (kissing balloon angioplasty) because of a history of kissing stents that were placed in 2016: 8.0 x 35 mm on the right and 10 x 35 mm on the left. The rest of the leg arteries do not exhibit significant obstructive disease. Small infrarenal abdominal aortic aneurysm. Intact renal arteries without significant disease S/p spiral fracture 4th R toe in early April 2016 Echocardiogram of February [address] Hardin showed normal LV systolic finciton, mild concentric LVH, Mild LV diastolic dysfunction, Trace valvular regurg HTN HLP - followed by her PCP (statin therapy) Vague h/o TIA documented in previous records from PCP Tobaccoism - cessation advised Carotid u/s from May 2016 showed mild bilat carotid arterial disease Plan: OK to discharge home today. Continue current medications Advised compliance with medications and f/u F/U appt in 2 weeks Physician Assessment Physician Assessment No cp or palp or syncope. Feels better and wishes to go home. No significant groin or leg discomfort Lungs: clear Cor: reg Ext: no c/c/e R and L groin: mild bruising A&R * As documented in our note above that I updated (italics) and as noted below * I discussed with her in detail the finding of angio and interventions undertaken and future management * We advised med compliance * We advised close outpt f/u for now SUMMER GRIFFITH Apr 09, 2019 07:55 GLORIA ADAMES MD FACP [facility] Apr 09, 2019 12:42
--- NOTE | 2019-04-09 08:56 | Discharge Inst-Cardiology ---
Discharge Inst-Cardiac Discharge Medications Continued Medications: Albuterol Sulfate (Ventolin Hfa) 1 Puff Puff 1 PUFF INH Q4H PRN for SHORTNESS OF BREATH, PUFF 1 PUFF = 90 MCG Albuterol Sulfate (Albuterol Sulfate) 0.63 Mg/3 Ml Vial.neb 1 INHALER IH BID, INHALER Amitriptyline HCl (Amitriptyline HCl) 10 Mg Tablet 10 MG PO HS, TAB Aspirin (Aspirin) 81 Mg Tab.chew 81 MG PO DAILY, #90 TAB 3 Refills Atorvastatin Calcium (Atorvastatin Calcium) 10 Mg Tablet 5 MG PO HS, TAB TAKES 1/2 (10MG) TABLET Clopidogrel Bisulfate (Plavix) 75 Mg Tablet 75 MG PO DAILY, #90 TAB 1 Refill Diclofenac Epolamine (Flector) 1 Each Patch.td12 1 PATCH TD Q12H Fluticasone Propionate (Fluticasone Propionate) 16 Gm Sheridan.susp 1-2 SPRAY NS DAILY, SPRAY Gabapentin (Gabapentin) 100 Mg Capsule 100 MG PO TID for Neuropathic pain, CAP Ipratropium Uehling (Ipratropium Uehling) 0.2 Mg/1 Ml Solution 1 INHALER IH Q12H, EA Metoprolol Tartrate (Metoprolol Tartrate) 25 Mg Tablet 25 MG PO BID, TAB Pantoprazole Sodium (Pantoprazole Sodium) 40 Mg Tablet.dr 40 MG PO DAILY, TAB Tramadol HCl (Tramadol HCl) 50 Mg Tablet 50 MG PO TID PRN for PAIN-MILD TO MODERATE, TAB Zolpidem Tartrate (Zolpidem Tartrate) 10 Mg Tablet 10 MG PO HS, TAB Patient Instructions Patient Instructions: Please schedule follow up appointment to see Dr. Adames in 2 weeks SUMMER GRIFFITH Apr 09, 2019 08:56
[2019-04-09] MEDS ORDERED: FLUTICASONE NASAL SPRAY (FLONASE) 16 GM BTL NS SCH (09:00)
[2019-04-09] MEDS ORDERED: ASPIRIN 81 MG CHEW (CHILDREN'S ASA) PO SCH (09:00)
[2019-04-09] MEDS ORDERED: CLOPIDOGREL 75 MG (PLAVIX) TABLET PO SCH (09:00)
== END 2019-04-09 11:00 | disposition home or self-care (01) ==
LOC: CATH 08:39 → ICU 12:42 → CATH 04-09 11:00
PROVIDERS: ATTEND Internal Medicine Cardiovascular Disease
DX: I70.201 Unspecified atherosclerosis of native arteries of extremities, right leg (principal); I71.4 Abdominal aortic aneurysm, without rupture; Z88.0 Allergy status to penicillin; Z88.2 Allergy status to sulfonamides; Z79.899 Other long term (current) drug therapy; Z79.82 Long term (current) use of aspirin; I77.89 Other specified disorders of arteries and arterioles; E78.00 Pure hypercholesterolemia, unspecified; Z86.73 Personal history of transient ischemic attack (TIA), and cerebral infarction without residual deficits; I10 Essential (primary) hypertension; Z87.891 Personal history of nicotine dependence; E78.5 Hyperlipidemia, unspecified
CPT/HCPCS: 36415; 37220; 37222; 75625; 75716; 80048; 80053; 80061; 85027; 85610; 85730; 87081; 93005

== ENCOUNTER → 2020-09-22 | Outpatient (CLI) | payer MEDICARE ==
[~2020-09-22] VITALS: Ht 165 cm; Wt 100.0 kg
[~2020-09-22] MED LIST changes: +ALBU0.63 IH; +AMIT10TA6 PO; +ASPI-1238 PO; -ASPI-983 PO; +DICL1PAT11 TD; +FLUT16SP22 NS; +GABA-486 PO; -HEParin (CATH LAB) 2,000 ML IV ONE; +IPRA0.2S51 IH; -LIDOCAINE 1% INJ 20 ML 20 ML VIAL ONE; -NS IV 1000 ML 1,000 ML ONE; +PANT40TA52 PO; +REGADENOSON 0.4 MG/5 ML SYR (LEXISCAN) IV ONE; +RT-ALBUINH INH; -TRAZ-190 PO; +TRAZ-227 PO; +TRM50T PO; +ZOLP10TA5 PO
[2020-09-22] MEDS: CATHETER FLUSH 10 ML SYR IV PRN ×2 (07:31→09:03)
[2020-09-22 09:02] VITALS: BP 134/73
--- NOTE | 2020-09-22 13:10 | Cardiology Stress Test Report ---
Stress Test Report Date of Procedure/Referring: Date of Procedure: Sep 22, 2020 PCP Sumi George MD Admitting Physician Damián Ayers MD Indications: Hypertension Baseline Heart Rate: 70 Baseline Blood Pressure: Blood Pressure Systolic: 134 Blood Pressure Diastolic: 73 Baseline Vitals Vital Signs Date Time Temp Pulse Resp B/P (MAP) Pulse Ox O2 Delivery O2 Flow Rate FiO2 09/22/20 09:02 71 16 134/73 (93) 98 Room Air Baseline EKG: Baseline EKG: normal sinus rhythm Summary After explaining the procedure to the patient, she signed a consent and then brought to the stress nuclear laboratory. Patient received 0.4 mg Lexiscan for stress test, ECG, heart rate and blood pressure were monitored continuously. Resting and stress dose of radio tracer were injected, imaging was acquired and reviewed in short axis, horizontal long axis and vertical long axis views. TID: 1.14 SSS: 3 SDS: 3 EF: 59 1. Patient tolerated Lexiscan well 2. Breast attenuation with reversible ischemia involving the mid to apical anterior wall 3. Normal left ventricle size, EF 59 percent SUMI GEORGE MD Sep 22, 2020 13:10
== END ==
LOC: CARD 07:45
PROVIDERS: ATTEND Internal Medicine Cardiovascular Disease
DX: I10 Essential (primary) hypertension (principal)
CPT/HCPCS: 78452; 93017; A9502

== ENCOUNTER → 2020-09-27 | Outpatient (CLI) | payer MEDICARE ==
[~2020-09-27] MED LIST changes: +CLOP75TA28 PO; +DIPH25CA79 PO; -FLUT16SP22 NS; +FLUT16SP22 NSEACH; +LISI10TA2 PO; +MELA3TAB39 PO; +MIRA50TA PO; -REGADENOSON 0.4 MG/5 ML SYR (LEXISCAN) IV ONE
== END ==
LOC: CARD 12:57
PROVIDERS: ATTEND Internal Medicine Cardiovascular Disease
DX: I10 Essential (primary) hypertension (principal)
CPT/HCPCS: 93306

== ENCOUNTER 2020-09-29 10:00 | Day surgery (SDC) | payer MEDICARE ==
[~2020-09-29] VITALS: Ht 165.1 cm; Wt 100.0 kg
[2020-09-29] VITALS (10 sets, daily range): BP systolic 138–159; BP diastolic 74–83
[2020-09-29 08:30] LABS: HEMOGLOBIN 14.8 g/dL (11.5-16.0); MEAN PLATELET VOLUME 8.7 fL (9.0-12.2); WHITE BLOOD COUNT 6.7 10^3/uL (4.3-11.0)
--- NOTE | 2020-09-29 08:33 | Diagnostic Imaging Report ---
INDICATION: Pre-heart catheterization. Patient has peripheral vascular disease and hypertension. TIME OF EXAM: 8:32 AM No prior studies are available for comparison. FINDINGS: The heart size is normal. The pulmonary vascularity is unremarkable. The lungs are clear. No infiltrate, effusion or pneumothorax is detected. IMPRESSION: No acute cardiopulmonary process is detected. Dictated by: Dictated on workstation # [id number]
[2020-09-29 08:43] LABS: PROTHROMBIN TIME PATIENT 13.5 SEC (12.2-14.7)
[2020-09-29 08:53] LABS: ALANINE AMINOTRANSFERASE 26 U/L (0-55); ALBUMIN 4.2 GM/DL (3.2-4.5); ALKALINE PHOSPHATASE 76 U/L (40-136); BILIRUBIN,TOTAL 0.4 MG/DL (0.1-1.0); BUN/CREATININE RATIO 15; CALCIUM 8.8 MG/DL (8.5-10.1); CARBON DIOXIDE 26 MMOL/L (21-32); CHLORIDE 106 MMOL/L (98-107); CHOLESTEROL 125 MG/DL (< 200); CREATININE SERUM 0.66 MG/DL (0.60-1.30); GFR ESTIMATED > 60; GLUCOSE 115 MG/DL (70-105); HDL CHOLESTEROL 29 MG/DL (40-60); SODIUM 141 MMOL/L (135-145); TOTAL PROTEIN 6.7 GM/DL (6.4-8.2); TRIGLYCERIDES 89 MG/DL (<150); VLDL CHOLESTEROL 18 MG/DL (5-40)
--- NOTE | 2020-09-29 09:26 | NUR ---
SPOKE WITH THE PT AND SPOKE WITH [facility] [place] TO COMPLETE THE MED REC 06-30-2020 PANTOPRAZOLE 40MG #90/90DS 07-09-2020 ATORVASTATIN 10MH #45/90DS 07-26-2020 TRAZODONE 100MG #180/90DS 07-28-2020 GABAPENTIN 100MG #270/90DS 08-18-2020 FLONASE #3 08-19-2020 METOPROLOL TART 25MG #180/90DS 09-02-2020 MYRBETRIQ 50MG #30/30DS 09-03-2020 MELATONIN 3MG #90/90DS 09-10-2020 LISINOPRIL 10MG #30/30DS 09-17-2020 AMITRIPTYLINE 10MG #90/90DS 09-17-2020 CLOPIDOGREL 75MG #90/90DS OTC MEDS: FAMOTIDINE BENADRYL ASPIRIN 81MG
[~2020-09-29 10:00] MED LIST changes: +HEParin (CATH LAB) 2,000 ML IV ONE; +LIDOCAINE 1% INJ 20 ML 20 ML VIAL ONE; +NS IV 1000 ML 1,000 ML IV SCH; +NS IV 1000 ML 1,000 ML ONE
[2020-09-29] MEDS ORDERED: fentaNYL INJECTION 100 MCG/2 ML AMP ONE (11:24)
[2020-09-29] MEDS ORDERED: MIDAZOLAM 5 MG/5 ML (VERSED) VIAL ONE (11:24)
[2020-09-29] MEDS ORDERED: LIDOCAINE 1% INJ 20 ML 20 ML VIAL ONE (12:08)
--- NOTE | 2020-09-29 12:22 | Cardiac Procedure Note-CS/ASA ---
Pre-Procedure Note Pre-Op Procedure Note H&P Reviewed The H&P was reviewed, patient examined and no changes noted. Date H&P Reviewed: Sep 29, 2020 Time H&P Reviewed: 09:00 Conscious Sedation Pre-Proced Time 09:00 ASA Score 3 For ASA 3 and 4: Consider anesthesia and medical clearance. Also, for patients with a history of failed moderate sedation consider anesthesia. Airway Lungs Heart ASA score ASA 1: a normal healthy patient ASA 2: a patient with a mild systemic disease (mid diabetes, controlled hypertension, obesity x ASA 3: a patient with a severe systemic disease that limits activity (angina, COPD, prior Myocardial infarction) ASA 4: a patient with an incapacitating disease that is a constant threat to life (CHF, renal failure) ASA 5: a moribund patient not expected to survive 24 hrs. (ruptured aneurysm) ASA 6: a declared brain- patient whose organs are being harvested. For emergent operations, add the letter E after the classification Mallampati Classification Grade 3 Sedation Plan Analgesia, Amnesia, Plan communicated to team members, Discussed options with patient/fam, Discussed risks with patient/fam The patient is an appropriate candidate to undergo the planned procedure, sedation, and anesthesia. The patient immediately re-assessed prior to indication. SUMI STRONG MD Sep 29, 2020 12:22 pm
--- NOTE | 2020-09-29 12:24 | Discharge Inst-Post CATH ---
Discharge Inst-CATH/EP Problems Reviewed?: Yes Post Cardiac Cath/EP D/C Inst Follow Up/Plan Appointment with Dr. STRONG's office in 4 weeks <b>CARDIAC CATH/EP PROCEDURE DISCHARGE INSTRUCTIONS</b> ACTIVITY * Go Home directly and rest. * Limit activity of the leg (or wrist if it was used) for 7 days including aerobics, swimming, jogging, bicycling, etc. * Restrict stair-climbing for 7 days if possible, if not, climb up with your non-cath leg, then bring together on the same step. * Avoid lifting, pushing, pulling or excessive movement of the affected extremity for 7 days. * Customary sexual activity may be resumed after 2 days-use caution not to use a position that strains or causes pain to the affected extremity. * No driving for 24 hours. * NO SMOKING. * Avoid straining for bowel movements for 7 days. * Gentle walking on level ground is allowed. * Returning to work will depend on the type of procedure and the results. Your doctor will discuss this with you. CALL YOUR DOCTOR FOR ANY OF THE FOLLOWING: *If bleeding from the puncture site occurs- Apply gentle pressure to site with clean cloth and call your doctor or EMS. * If a knot or lump forms under the skin, increases in size, or causes pain. * If bruising appears to be worsening or moving further down your leg instead of disappearing. * Temperature above 101 F. CARE OF YOUR GROIN INCISION; * Bruising or purple discoloration of the skin near the puncture site is common. * You may shower only, no bathtub bathing for 5 days. Be careful to avoid slipping as your leg may feel stiff. * If a closure device was used on your femoral artery, please see the attached guide regarding care of the device and your leg. * Leave dressing on FOR 24 hours. CARE OF YOUR WRIST INCISION; * Bruising or purple discoloration of the skin near the puncture site is common. * You may shower. * DO NOT submerge wrist. * Leave dressing on FOR 24 hours. SUMI STRONG MD Sep 29, 2020 12:24 pm
[2020-09-29] MEDS ORDERED: NS IV 1000 ML 1,000 ML IV SCH (12:30)
[2020-09-29] MEDS ORDERED: PATIENT MAY USE OWN MEDS, ALL PO SCH (12:30)
--- NOTE | 2020-09-29 12:33 | Cardiac Cath Report ---
Cardiac Cath Report Physician (s)/Recruiting Associate (s) Physician SUMI STRONG MD Pre-Procedure Diagnosis Pre-Procedure Diagnosis: coronary artery disease, peripheral artery disease Post-Procedure Note Procedure Start Date: Sep 29, 2020 Name of Procedure: Left heart catheterization Abdominal aortogram with bilateral lower extremities runoff Findings/Procedure Note PROCEDURE NOTE: 60-year-old lady with history of peripheral arterial disease, has bilateral i liac stenting kissing stent. Had abnormal SANJEEV, scheduled for peripheral angiogram then prior to the procedure had an abnormal stress test and scheduled for coronary angiogram in addition to the peripheral angiogram. After explaining the procedure to the patient, all pros and cons were explained, all questions were answered. The patient signed the consent and then she was placed on the cardiac catheterization laboratory. Groin was prepped SL fashion local anesthesia was used. Sheath placed in the left femoral artery. Dustin right and left catheter were used to access the coronary system. Pigtail was used to access the left ventricular cavity. Left ventriculogram was not done Pigtail catheter was placed in the abdominal aorta just above the renal artery and did abdominal aortogram with bilateral lower extremity runoff then lowered due to the bifurcation level and repeated angiogram to evaluate the bifurcation At the end of the procedure the sheath was removed. Closure device was deployed FINDINGS: Hemodynamics LV 144/14, end-diastolic pressure 14 Aorta 138/73 mean of 101 ANATOMY: Left Main as severe distal stenosis followed by aneurysmal dilatation in the proximal circumflex system Left Anterior Descending is moderate in size with moderate disease nonobstructive disease, there is severe ostial LAD/distal obtuse marginal stenosis Left Circumflex is moderate in size there is a small aneurysm at the origin of the circumflex artery. Right Coronory Artery is moderate in size with 60-70 percent stenosis in the midportion at 2 segments LV Gram was not done, pressure was measured Abdominal aortogram with bilateral runoff showed moderate atherosclerotic disease, renal arteries are normal, small aneurysmal dilatation in the distal abdominal aorta just above the bifurcation, there is kissing iliac stents, the left iliac has mild disease, the right iliac has moderate to severe in-stent restenosis, there is good flow down to the mid SFA below that area I did not visualize the arteries CONCLUSION: 1. 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 Severe midright coronary artery stenosis 3. Severe in-stent restenosis in the right common iliac artery, mild to moderate disease in the left stent in the left common iliac artery DISCUSSION AND RECOMMENDATION: Patient will be referred for evaluation for CABG, we'll consider repeating balloon angioplasty using kissing balloon for the iliac arteries Anesthesia Type: Conscious Sedation Estimated blood loss (mL): 50 ml Contrast Amount: 65 ml Total Radiation Dose: 410 mGy Post-Procedure Diagnosis Post-operative diagnosis: Coronary artery disease Peripheral arterial disease Hypertension Hyperlipidemia SUMI STRONG MD Sep 29, 2020 12:33 pm
== END 2020-09-29 16:45 ==
LOC: CATH 10:00 → SDC 12:39 → CATH 16:45
PROVIDERS: ATTEND Internal Medicine Cardiovascular Disease
DX: I25.10 Atherosclerotic heart disease of native coronary artery without angina pectoris (principal); I70.213 Atherosclerosis of native arteries of extremities with intermittent claudication, bilateral legs; I10 Essential (primary) hypertension; E78.5 Hyperlipidemia, unspecified; E78.00 Pure hypercholesterolemia, unspecified; I65.23 Occlusion and stenosis of bilateral carotid arteries; F17.210 Nicotine dependence, cigarettes, uncomplicated; E66.9 Obesity, unspecified; Z68.36 Body mass index [BMI] 36.0-36.9, adult; Z79.51 Long term (current) use of inhaled steroids; Z79.82 Long term (current) use of aspirin; Z79.899 Other long term (current) drug therapy; Z88.2 Allergy status to sulfonamides; Z88.8 Allergy status to other drugs, medicaments and biological substances; Z88.5 Allergy status to narcotic agent; Z88.1 Allergy status to other antibiotic agents; Z86.73 Personal history of transient ischemic attack (TIA), and cerebral infarction without residual deficits; Z83.3 Family history of diabetes mellitus
CPT/HCPCS: 71045; 75630; 80053; 80061; 85027; 85610; 85730; 87081; 93458; C1760; C1769; C1887 ×2; C1894; 36415

== ENCOUNTER → 2021-12-23 | Outpatient (CLI) | payer MEDICARE ==
[~2021-12-23] MED LIST changes: -AMIT10TA6 PO; +AMT10T PO; -DICL1PAT11 TD; +DICL1PAT13 TD; -HEParin (CATH LAB) 2,000 ML IV ONE; -LIDOCAINE 1% INJ 20 ML 20 ML VIAL ONE; -LISI10TA2 PO; +LISI10TA25 PO; -NS IV 1000 ML 1,000 ML IV SCH; -NS IV 1000 ML 1,000 ML ONE
== END ==
LOC: CARD 13:00
PROVIDERS: ATTEND Internal Medicine Cardiovascular Disease
DX: I11.9 Hypertensive heart disease without heart failure (principal); I34.0 Nonrheumatic mitral (valve) insufficiency
CPT/HCPCS: 93306

== ENCOUNTER → 2022-10-18 | Outpatient (CLI) | payer MEDICARE ==
[~2022-10-18] VITALS: Ht 165 cm; Wt 95.0 kg
[~2022-10-18] MED LIST changes: +CATHETER FLUSH 10 ML SYR IVP PRN; +CLOP-31 PO; -CLOP75TA69 PO; +REGADENOSON 0.4 MG/5 ML SYR (LEXISCAN) IV ONE
[2022-10-18 13:33] VITALS: BP 131/85
--- NOTE | 2022-10-18 17:44 | Cardiology Stress Test Report ---
Stress Test Report Date of Procedure/Referring: Date of Procedure: Oct 18, 2022 PCP Damián Ayers MD Admitting Physician Admitting Physician: Attending Physician: Aissatou Holguin Indications: CAD Baseline Heart Rate: 80 Baseline Blood Pressure: Blood Pressure Systolic: 131 Blood Pressure Diastolic: 85 Baseline Vitals Vital Signs Date Time Temp Pulse Resp B/P (MAP) Pulse Ox O2 Delivery O2 Flow Rate FiO2 10/18/22 13:33 80 131/85 (100) Baseline EKG: Baseline EKG: NSR Summary After explaining the procedure to the patient, she signed a consent and then brought to the stress nuclear laboratory. Patient received 0.4 mg Lexiscan for stress test, ECG, heart rate and blood pressure were monitored continuously. Resting and stress dose of radio tracer were injected, imaging was acquired and reviewed in short axis, horizontal long axis and vertical long axis views. TID: 0.98 SSS: 9 SDS: 8 EF: 70 1. Patient tolerated Lexiscan well 2. Occasional PVCs noted during test 3. Patchy uptake with reversible ischemia involving the anteroapical segment, base of the anterior wall and anteroseptum, inferoapical segment of the left ventricle 4. Normal left ventricular size, ejection fraction 70% SUMI STRONG MD Oct 18, 2022 17:44
== END ==
LOC: CARD 11:28
PROVIDERS: ATTEND Physician Assistant
DX: I25.10 Atherosclerotic heart disease of native coronary artery without angina pectoris (principal)
CPT/HCPCS: 78452; 93017; A9502

== ENCOUNTER 2022-11-01 11:00 | Day surgery (SDC) | payer MEDICARE ==
[2022-11-01] VITALS (11 sets, daily range): BP systolic 131–155; BP diastolic 65–88
[~2022-11-01] VITALS: Ht 165.1 cm; Wt 94.0 kg
--- NOTE | 2022-11-01 09:19 | Diagnostic Imaging Report ---
EXAM: CHEST 1 VIEW, AP/PA ONLY INDICATION: Coronary artery disease. COMPARISON: Chest radiograph 09/29/2020. FINDINGS: Interval sternotomy and CABG. Normal heart size and central pulmonary vascularity. Lung mcfarland are clear. No pleural effusion or pneumothorax. IMPRESSION: Interval sternotomy with CABG. No acute cardiopulmonary findings. Dictated by: Dictated on workstation # [id number]
[2022-11-01 09:25] LABS: HEMATOCRIT 46 % (35-52); MEAN CORPUSCULAR HEMOGLOBIN 30 pg (25-34); MEAN CORPUSCULAR HGB CONC 33 g/dL (32-36); MEAN CORPUSCULAR VOLUME 92 fL (80-99); MEAN PLATELET VOLUME 8.8 fL (9.0-12.2); PLATELET COUNT 242 10^3/uL (130-400); WHITE BLOOD COUNT 7.2 10^3/uL (4.3-11.0)
[2022-11-01 09:38] LABS: INR 0.9 (0.8-1.4); PROTHROMBIN TIME PATIENT 12.9 SEC (12.2-14.7)
--- NOTE | 2022-11-01 09:42 | Cardiac Procedure Note-CS/ASA ---
Pre-Procedure Note Pre-Op Procedure Note Date of Available H&P: Oct 24, 2022 Date H&P Reviewed: Nov 01, 2022 Time H&P Reviewed: 09:42 History & Physical: H&P Reviewed, Patient Examed, No changes noted Pre-Operative Diagnosis: coronary artery disease, peripheral artery disease Conscious Sedation Pre-Proced Time 09:42 ASA Score 3 For ASA 3 and 4: Consider anesthesia and medical clearance. Also, for patients with a history of failed moderate sedation consider anesthesia. Airway Lungs Heart ASA score ASA 1: a normal healthy patient ASA 2: a patient with a mild systemic disease (mid diabetes, controlled hypertension, obesity ASA 3: a patient with a severe systemic disease that limits activity (angina, COPD, prior Myocardial infarction) ASA 4: a patient with an incapacitating disease that is a constant threat to life (CHF, renal failure) ASA 5: a moribund patient not expected to survive 24 hrs. (ruptured aneurysm) ASA 6: a declared brain- patient whose organs are being harvested. For emergent operations, add the letter E after the classification Mallampati Classification Grade 3 Sedation Plan Analgesia, Amnesia, Plan communicated to team members, Discussed options with patient/fam, Discussed risks with patient/fam The patient is an appropriate candidate to undergo the planned procedure, sedation, and anesthesia. The patient immediately re-assessed prior to indication. SUMI STRONG MD Nov 01, 2022 09:42
[2022-11-01 09:45] LABS: BILIRUBIN,URINE NEGATIVE (NEGATIVE); CLARITY,URINE CLEAR; COLOR,URINE YELLOW; GLUCOSE, URINE (UA) NEGATIVE (NEGATIVE); KETONES,URINE NEGATIVE (NEGATIVE); LEUKOCYTE ESTERASE ,URINE NEGATIVE (NEGATIVE); NITRITE,URINE NEGATIVE (NEGATIVE); PH,URINE 6.5 (5-9); PROTEIN,URINE NEGATIVE (NEGATIVE)
[2022-11-01 09:45] LABS: ALBUMIN 4.2 GM/DL (3.2-4.5); BILIRUBIN,TOTAL 0.7 MG/DL (0.1-1.0); CALCIUM 8.9 MG/DL (8.5-10.1); CREATININE SERUM 0.62 MG/DL (0.60-1.30); POTASSIUM 3.9 MMOL/L (3.6-5.0); TOTAL PROTEIN 6.7 GM/DL (6.4-8.2)
[2022-11-01 09:56] LABS: BACTERIA,URINE TRACE /HPF; WBC,URINE RARE /HPF
[~2022-11-01 11:00] MED LIST changes: +ATOR40TA70 PO; -CATHETER FLUSH 10 ML SYR IVP PRN; +FLUT1BLS3 IH; +HEParin (CATH LAB) 2,000 ML IV ONE; +LIDOCAINE 1% INJ 30 ML (XYLOCAINE) VIAL ONE; +MIDAZOLAM 5 MG/5 ML (VERSED) VIAL ONE; +NS IV 1000 ML 1,000 ML IV SCH; +NS IV 1000 ML 1,000 ML ONE; -REGADENOSON 0.4 MG/5 ML SYR (LEXISCAN) IV ONE; +ZOLP10TA PO; +fentaNYL INJ 100 MCG/2 ML AMP ONE
[2022-11-01] MEDS ORDERED: fentaNYL INJ 100 MCG/2 ML AMP ONE (11:04)
[2022-11-01] MEDS ORDERED: MIDAZOLAM 2 MG/2 ML (VERSED) VIAL ONE (11:05)
[2022-11-01] MEDS ORDERED: PATIENT MAY USE OWN MEDS, ALL PO SCH (11:30)
[2022-11-01] MEDS ORDERED: NS IV 1000 ML 1,000 ML IV SCH (11:30)
--- NOTE | 2022-11-01 11:31 | Discharge Inst-Post CATH ---
Discharge Inst-CATH/EP Problems Reviewed?: Yes Post Cardiac Cath/EP D/C Inst Follow Up/Plan Appointment with Dr. George's office in 2 to 4 weeks <b>CARDIAC CATH/EP PROCEDURE DISCHARGE INSTRUCTIONS</b> ACTIVITY * Go Home directly and rest. * Limit activity of the leg (or wrist if it was used) for 7 days including aer obics, swimming, jogging, bicycling, etc. * Restrict stair-climbing for 7 days if possible, if not, climb up with your non-cath leg, then bring together on the same step. * Avoid lifting, pushing, pulling or excessive movement of the affected extremi ty for 7 days. * Customary sexual activity may be resumed after 2 days-use caution not to use a position that strains or causes pain to the affected extremity. * No driving for 24 hours. * NO SMOKING. * Avoid straining for bowel movements for 7 days. * Gentle walking on level ground is allowed. * Returning to work will depend on the type of procedure and the results. Your doctor will discuss this with you. CALL YOUR DOCTOR FOR ANY OF THE FOLLOWING: *If bleeding from the puncture site occurs- Apply gentle pressure to site with clean cloth and call your doctor or EMS. * If a knot or lump forms under the skin, increases in size, or causes pain. * If bruising appears to be worsening or moving further down your leg instead of disappearing. * Temperature above 101 F. CARE OF YOUR GROIN INCISION; * Bruising or purple discoloration of the skin near the puncture site is common. * You may shower only, no bathtub bathing for 5 days. Be careful to avoid slipping as your leg may feel stiff. * If a closure device was used on your femoral artery, please see the attached guide regarding care of the device and your leg. * Leave dressing on FOR 24 hours. CARE OF YOUR WRIST INCISION; * Bruising or purple discoloration of the skin near the puncture site is common. * You may shower. * DO NOT submerge wrist. * Leave dressing on FOR 24 hours. SUMI GEORGE MD Nov 01, 2022 11:31
[2022-11-01] MEDS ORDERED: ONDANSETRON 4 MG/2 ML (SDV) Z0FRAN ONE (11:33)
--- NOTE | 2022-11-01 11:40 | Cardiac Cath Report ---
Cardiac Cath Report Physician (s)/Senior Digital Designer (s) Physician SUMI STRONG MD Pre-Procedure Diagnosis Pre-Procedure Diagnosis: coronary artery disease, peripheral artery disease Post-Procedure Note Procedure Start Date: Nov 01, 2022 Name of Procedure: Left heart catheterization Vein graft angiogram GUTIERREZ angiogram Aortic arch angiogram Abdominal aortogram with bilateral lower extremity runoff Findings/Procedure Note PROCEDURE NOTE: 62-year-old lady with history of coronary artery disease, CABG x3, had an abnormal stress test, has peripheral arterial disease with bilateral iliac stent, had an abnormal TBI and has been having left leg pain. Ultrasound suggestive of plaque in the lower extremities. She was scheduled for cardiac catheterization and peripheral angiogram. After explaining the procedure to the patient, all pros and cons were explained, all questions were answered. The patient signed the consent and then she was placed in the cardiac catheterization laboratory. Groin was prepped in SL fashion local anesthesia was used. Sheath placed in the right femoral artery. Dustin left catheter advanced to the left coronary system, angiogram was done, exchanged over J-wire and advanced Dustin right catheter. Engaged the right coronary artery and angiogram was done then engage the vein graft and angiogram was done then advanced to the internal mammary artery and angiogram was done then I exchanged the catheter to pigtail catheter and advanced into the left ventricular cavity, pressure was measured, pullback LV to aorta was done, aortic arch angiogram then I pulled the catheter down to the abdominal aorta and abdominal aortogram with bilateral lower extremities runoff down to the trifurcation. I really exchanged the the pigtail catheter and advanced Dustin left catheter again to the left coronary system and took additional imaging to the left system then I did runoff to the right leg through the sheath then I did DSA imaging at the trifurcation level. At the end of the procedure the sheath was removed. Closure device was deployed FINDINGS: Hemodynamics LV 142/15, end-diastolic pressure of 15 Aorta 143/69 mean of 94 ANATOMY: Left Main has severe distal stenosis Left Anterior Descending has severe stenosis at the ostium and midportion, competitive flow through the GUTIERREZ was noted, the GUTIERREZ to the LAD is patent Left Circumflex has severe ostial stenosis and severe stenosis at the mid obtuse marginal branch, the vein graft to the obtuse marginal branch is occluded Right Coronary Artery is moderate in size, the right posterior descending artery is occluded with occluded vein graft to the right PDA, collateral filling the right PDA from the left system LV Gram was not done, pressure was measured Aorta evaluation done with aortic arch angiogram showing slightly prominent aortic arch, normal origin of the brachiocephalic and left carotid and left subclavian arteries. No dissection or aneurysm Abdominal aortogram with bilateral runoff: Abdominal aorta showed small infrarenal abdominal aortic aneurysm just above the bifurcation. The renal arteries are normal, SMA and NAHOMY are normal. Kissing iliac stents were noted and they were both patent with excellent flow down to the popliteal artery bilaterally DSA imaging of the right leg trifurcation showed excellent flow with no obstructive disease CONCLUSION: 1. Severe 80 to 90% distal left main coronary artery stenosis with severe ostial LAD and left circumflex artery stenosis and occluded right PDA. The GUTIERREZ to the LAD is patent otherwise they were to occluded vein graft presumably to the obtuse marginal branch and to the right PDA 2. Normal aortic arch. No dissection or aneurysm 3. Infrarenal abdominal aortic aneurysm small to moderate in size 4. Patent bilateral iliac kissing stents with good flow down to the trifurcation DISCUSSION AND RECOMMENDATION: Patient has severe distal left main and ostial LAD and circumflex artery, appeared to have lost her vein graft to the circumflex and to the right coronary artery. These arteries are inoperable at this point. I recommend maximizing medical therapy otherwise if she becomes symptomatic we will consider referral for redo bypass surgery Anesthesia Type: Conscious Sedation Estimated blood loss (mL): 25 ml Contrast Amount: 110 ml Total Radiation Dose: 576 mGy Post-Procedure Diagnosis Post-operative diagnosis: Coronary artery disease Hypertension Hyperlipidemia Abdominal aortic aneurysm Peripheral arterial disease SUMI STRONG MD Nov 01, 2022 11:40
== END 2022-11-01 16:05 ==
LOC: CATH 11:00 → SDC 11:51 → CATH 16:05
PROVIDERS: ATTEND Internal Medicine Cardiovascular Disease
DX: I25.10 Atherosclerotic heart disease of native coronary artery without angina pectoris (principal); I73.9 Peripheral vascular disease, unspecified; I10 Essential (primary) hypertension; I71.40 Abdominal aortic aneurysm, without rupture, unspecified; E66.9 Obesity, unspecified; Z68.34 Body mass index [BMI] 34.0-34.9, adult; Z79.899 Other long term (current) drug therapy; F17.210 Nicotine dependence, cigarettes, uncomplicated; I65.23 Occlusion and stenosis of bilateral carotid arteries; Z86.73 Personal history of transient ischemic attack (TIA), and cerebral infarction without residual deficits; E78.2 Mixed hyperlipidemia; E78.00 Pure hypercholesterolemia, unspecified
CPT/HCPCS: 36221; 71045; 80053; 80061; 81000; 85027; 85610; 85730; 87081; 93005; 93459; C1760; C1894; G0278; 36415